=== PATIENT | female | born 1950 | race Caucasian/White ===

== ENCOUNTER → 2017-11-28 | Outpatient (CLI) | payer MEDICARE ==
[~2017-11-28] MED LIST: ASPIRIN CHEWABL81 MG PO; AUGMENTIN 875 M1 TAB PO; AUGMENTIN 875875 MG PO; CIPROFLOXACIN250 MG PO; CIPROFLOXACIN500 MG PO; CLARITIN10 MG PO; DARVOCET N 1001 TAB PO; DAYPRO600 M1 PO; ELIQUIS5 M1 PO; GEODON20 MG PO; HYDROCHLOROTHIA25 M1 PO; IBU-8800 MG PO; INVEGA SUSTENN156 MG IM; INVEGA6 MG PO; K-DUR20 MEQ PO; KEFLEX500 MG PO; LASIX40 MG PO; LISINOPRIL20 MG PO; MACROBID100 M1 PO; MEDROL DOSEPAK4 MG PO; MIRTAZAPINE15 M2 PO; NKHM; POTASSIUM CHLO20 ME4 PO; TRAMADOL HCL50 MG PO; VITAMIN D50000 I3 PO; ZYRTEC10 MG PO
== END | disposition home or self-care (01) ==
LOC: MAMMO 13:27
DX: Z12.31 Encounter for screening mammogram for malignant neoplasm of breast (principal)

== ENCOUNTER 2018-10-05 11:18 | Emergency (ER) | payer MEDICARE ==
--- NOTE | ~2018-10-05 | EKG ---
[employer], [place] ELECTROCARDIOGRAM REPORT NAME: JESSY BENSON UNIT #: [id number] ROOM: DOCTOR: EPIPHANY DRAFT REPORT BIRTHDATE: [birth year] [facility] Test Date: 2018-10-05 Test Time: 11:50:55 Pat Name: JESSY BENSON Department: ER Room: Gender: F Analytics Director: : 1950 Requested By: MARCUS FLETCHER Order Number: [id number] Reading MD: Nikita Porter MD Measurements Intervals [place] Rate: 100 P: 38 NH: 147 QRS: -60 QRSD: 85 T: 41 QT: 353 QTc: 456 Interpretive Statements Sinus tachycardia Anterolateral infarct, old Electronically Signed On 10-06-2018 15:17:50 PST by Nikita Porter MD CM:EKGRPT:ELECTROCARDIOGRAM REPORT [id number] MARCUS DEGROOT DRAFT REPORT MARCUS FLETCHER MD
[2018-10-05 11:49] LABS: BASO # 0.1 10*3/uL (0.0-0.1); BASO % 0.6 % (0.0-1.0); EOS # 0.1 10*3/uL (0.0-0.4); EOS % 0.8 % (1.0-4.0); HEMATOCRIT 41.4 % (37.0-47.0); HEMOGLOBIN 13.8 g/dl (12.0-16.0); LYMPH # 1.5 10*3/uL (1.3-4.4); LYMPH % 16.9 % (27.0-41.0); MEAN CELL VOLUME 98.8 fl (81.0-99.0); MEAN CORPUSCULAR HGB 32.9 pg (27.0-31.0); MEAN CORPUSCULAR HGB CONC 33.3 g/dl (33.0-37.0); MEAN PLATELET VOLUME 11.1 fl (9.6-12.3); MONO # 0.6 10*3/uL (0.1-1.0); MONO % 6.2 % (3.0-9.0); NEUT # 6.7 10*3/uL (2.3-7.9); NEUT % 75.3 % (47.0-73.0); PLATELET COUNT AUTOMATED 297 10*3/uL (130-400); RED BLOOD COUNT 4.19 10*6/uL (4.10-5.10); RED CELL DISTRI WIDTH 13.7 % (0-14.5); WHITE BLOOD COUNT 8.8 10*3/uL (4.8-10.8)
[2018-10-05 11:59] LABS: ACT PARTIAL THROMBO TIME 21.9 SECONDS (20.8-31.5)
[2018-10-05 12:11] LABS: ALKALINE PHOSPHATASE 138 U/L (45-117); BUN 17 mg/dl (7-24); CHLORIDE 106 mmol/L (98-107); CREATININE 1.02 mg/dL (0.55-1.02); POTASSIUM 4.2 mmol/L (3.5-5.1); SGOT/AST 16 IU/L (3-35); SGPT/ALT 24 U/L (12-78); SODIUM 138 mmol/L (136-145)
[2018-10-05 12:16] LABS: TROPONIN I < 0.015 ng/ml (<0.045)
[2018-10-05 15:02] LABS: BILIRUBIN NEGATIVE (NEGATIVE); BLOOD TRACE-INTACT (NEGATIVE); CLARITY CLEAR (CLEAR); COLOR YELLOW (YELLOW); GLUCOSE 2+ (NEGATIVE); KETONE NEGATIVE (NEGATIVE); LEUKO ESTERASE NEGATIVE (NEGATIVE); NITRITE NEGATIVE (NEGATIVE); PH 5.5 (5.0-9.0); SPECIFIC GRAVITY <= 1.005 (1.005-1.030); UROBILINOGEN 0.2 E.U./dl (0.2-1.0)
[2018-10-05 15:09] LABS: BACTERIA TRACE
== END 2018-10-05 15:20 | disposition home or self-care (01) ==
LOC: ED 11:18
PROVIDERS: Emergency Medicine
DX: J18.9 Pneumonia, unspecified organism (principal); I26.99 Other pulmonary embolism without acute cor pulmonale; I11.0 Hypertensive heart disease with heart failure; I50.9 Heart failure, unspecified; M79.89 Other specified soft tissue disorders; R00.0 Tachycardia, unspecified; Z88.2 Allergy status to sulfonamides; Z88.1 Allergy status to other antibiotic agents; Z79.899 Other long term (current) drug therapy; Z79.82 Long term (current) use of aspirin

== ENCOUNTER 2018-10-10 20:24 | Emergency (ER) | payer MEDICARE ==
[2018-10-10 20:54] LABS: BASO # 0.1 10*3/uL (0.0-0.1); BASO % 0.7 % (0.0-1.0); EOS # 0.1 10*3/uL (0.0-0.4); EOS % 0.6 % (1.0-4.0); HEMATOCRIT 40.1 % (37.0-47.0); HEMOGLOBIN 13.2 g/dl (12.0-16.0); LYMPH # 1.9 10*3/uL (1.3-4.4); LYMPH % 17.4 % (27.0-41.0); MEAN CELL VOLUME 99.3 fl (81.0-99.0); MEAN CORPUSCULAR HGB 32.7 pg (27.0-31.0); MEAN CORPUSCULAR HGB CONC 32.9 g/dl (33.0-37.0); MEAN PLATELET VOLUME 10.8 fl (9.6-12.3); MONO # 0.8 10*3/uL (0.1-1.0); MONO % 6.8 % (3.0-9.0); NEUT # 8.3 10*3/uL (2.3-7.9); NEUT % 74.2 % (47.0-73.0); PLATELET COUNT AUTOMATED 297 10*3/uL (130-400); RED BLOOD COUNT 4.04 10*6/uL (4.10-5.10); RED CELL DISTRI WIDTH 13.9 % (0-14.5); WHITE BLOOD COUNT 11.1 10*3/uL (4.8-10.8)
[2018-10-10 21:13] LABS: ALBUMIN 3.1 gm/dl (3.1-4.5); ALKALINE PHOSPHATASE 116 U/L (45-117); BUN 18 mg/dl (7-24); CHLORIDE 107 mmol/L (98-107); CREATININE 1.06 mg/dL (0.55-1.02); POTASSIUM 3.7 mmol/L (3.5-5.1); SGOT/AST 23 IU/L (3-35); SGPT/ALT 28 U/L (12-78); SODIUM 141 mmol/L (136-145); TOTAL PROTEIN 6.8 gm/dL (6.4-8.2)
[2018-10-10 21:18] LABS: ACETAMINOPHEN (TYLENOL) < 5.0 ug/ml (10-30)
[2018-10-10 21:19] LABS: ETHYL ALCOHOL < 3.0 mg/dl (<3)
[2018-10-10 22:01] LABS: BILIRUBIN NEGATIVE (NEGATIVE); BLOOD TRACE-LYSED (NEGATIVE); CLARITY CLEAR (CLEAR); COLOR YELLOW (YELLOW); GLUCOSE NEGATIVE (NEGATIVE); KETONE 1+ (NEGATIVE); LEUKO ESTERASE NEGATIVE (NEGATIVE); NITRITE NEGATIVE (NEGATIVE); SPECIFIC GRAVITY 1.025 (1.005-1.030); UROBILINOGEN 0.2 E.U./dl (0.2-1.0)
[2018-10-10 22:08] LABS: URINE AMPHETAMINES < 1000 (1000ng/ml); URINE BARBITURATES < 200 (200ng/ml); URINE BENZODIAZEPINES < 200 (200ng/ml); URINE CANNABINOIDS (THC) < 50 (50ng/ml); URINE COCAINE < 300 (300ng/ml); URINE METHADONE < 300 (300ng/ml); URINE OPIATES < 300 (300ng/ml)
[2018-10-10 22:10] LABS: URINE PHENCYCLIDINE < 25 (25ng/ml)
[2018-10-11] MEDS ORDERED: ZOLOFT100 MG PO (07:10)
[2018-10-11] MEDS ORDERED: DEPAKOTE DR500 MG PO (07:11)
== END 2018-10-11 15:48 | disposition short-term general hospital (02) ==
LOC: ED 20:24
PROVIDERS: Nurse Practitioner Family
DX: F23 Brief psychotic disorder (principal); Z88.2 Allergy status to sulfonamides; Z88.1 Allergy status to other antibiotic agents; Z79.899 Other long term (current) drug therapy; Z79.82 Long term (current) use of aspirin; I10 Essential (primary) hypertension; F25.9 Schizoaffective disorder, unspecified; Z90.49 Acquired absence of other specified parts of digestive tract; F31.9 Bipolar disorder, unspecified

== ENCOUNTER 2020-01-03 10:55 | Inpatient (IN) | payer MEDICARE ==
[2020-01-03] VITALS (8 sets, daily range): BP systolic 117–144; BP diastolic 44–80
[~2020-01-03] VITALS: Ht 167.6 cm; Wt 107.6 kg
[~2020-01-03 10:55] MED LIST changes: +DEPAKOTE DR500 MG PO; +ZOLOFT100 MG PO
[2020-01-03 12:03] LABS: BASO # 0.1 10*3/uL (0.0-0.1); BASO % 0.6 % (0.0-1.0); EOS # 0.1 10*3/uL (0.0-0.4); EOS % 0.9 % (1.0-4.0); HEMATOCRIT 43.1 % (37.0-47.0); LYMPH # 1.5 10*3/uL (1.3-4.4); LYMPH % 14.4 % (27.0-41.0); MEAN CELL VOLUME 95.4 fl (81.0-99.0); MEAN CORPUSCULAR HGB 31.2 pg (27.0-31.0); MEAN CORPUSCULAR HGB CONC 32.7 g/dl (33.0-37.0); MEAN PLATELET VOLUME 11.7 fl (9.6-12.3); MONO # 0.7 10*3/uL (0.1-1.0); MONO % 6.9 % (3.0-9.0); NEUT # 7.8 10*3/uL (2.3-7.9); NEUT % 76.9 % (47.0-73.0); PLATELET COUNT AUTOMATED 284 10*3/uL (130-400); RED BLOOD COUNT 4.52 10*6/uL (4.10-5.10); RED CELL DISTRI WIDTH 13.3 % (0-14.5); WHITE BLOOD COUNT 10.2 10*3/uL (4.8-10.8)
[2020-01-03 12:04] LABS: BILIRUBIN NEGATIVE (NEGATIVE); BLOOD TRACE-LYSED (NEGATIVE); CLARITY CLEAR (CLEAR); COLOR YELLOW (YELLOW); GLUCOSE 3+ (NEGATIVE); KETONE NEGATIVE (NEGATIVE); LEUKO ESTERASE NEGATIVE (NEGATIVE); NITRITE NEGATIVE (NEGATIVE); UROBILINOGEN 0.2 E.U./dl (0.2-1.0)
--- NOTE | 2020-01-03 12:05 | NUR ---
PT POSITIONED FOR COMFORT WITH [employer] INTACT AND CALL LIGHT WITHIN REACH,NO COMPLAINTS VOICED WILL CONTINUE TO MONITOR.
[2020-01-03 12:10] LABS: BACTERIA 1+; YEAST 1+
[2020-01-03 12:20] LABS: ALBUMIN 2.9 gm/dl (3.1-4.5); ALKALINE PHOSPHATASE 108 U/L (45-117); BUN 34 mg/dl (7-24); CHLORIDE 93 mmol/L (98-107); CREATININE 1.52 mg/dL (0.55-1.02); POTASSIUM 4.4 mmol/L (3.5-5.1); SGOT/AST 17 IU/L (3-35); SGPT/ALT 28 U/L (12-78); SODIUM 125 mmol/L (136-145); TOTAL PROTEIN 6.9 gm/dL (6.4-8.2)
[2020-01-03 12:22] LABS: TROPONIN I < 0.015 ng/ml (<0.045)
--- NOTE | 2020-01-03 12:24 | NUR ---
ARRON RAMIREZ NOTIFIED OF CRITICAL BLOOD GLUCOSE OF 836
--- NOTE | 2020-01-03 14:02 | NUR ---
MENDOZA (AIDE) AT [facility] NOTIFIED OF PATIENT ADMISSION. STATES SHE IS THE ONLY STAFF ON DUTY AT FACILITY AT THIS TIME.
--- NOTE | 2020-01-03 14:12 | NUR ---
MSADMTime: N A 69 year old FEMALE admitted to 4E under services of DR. CORBY PIERCE,PASCALE Julien Pt. arrived via wheel chair from ER. Chief complaint: DRY MOUTH. MAURICIO LIZARRAGA
--- NOTE | 2020-01-03 16:15 | NUR ---
NOTIFIED DR. TAVAREZ OF PT'S GLUCOSE.
--- NOTE | 2020-01-03 19:32 | NUR ---
IN PT ROOM AT THIS TIME TO COMPLETE ASSESSMENT, PT STATES SHE HAS NO COMPLAINTS AT THIS TIME. HER NASAL CANNULA WAS NOT ON, SO I DID PUT HER ON 2L. PT IS AWARE OF HOW TO USE CALL LIGHT IF SHE NEEDS ANYTHING, CALL LIGHT WITHIN REACH, WILL CONTINUE TO MONITOR
--- NOTE | 2020-01-03 21:24 | NUR ---
CANCELLED VITAL SINGS ACCIDENTALLY, SO I COPIED ALL OF THE VITALS THAT HAVE BEEN TAKEN AND ADDED A NEW INTERVENTION AND UPDATED THE VITALS
[2020-01-04] VITALS: BP 114/89
--- NOTE | 2020-01-04 02:38 | NUR ---
24 HR chart check completed.
[2020-01-04 06:12] LABS: BASO # 0.1 10*3/uL (0.0-0.1); BASO % 0.7 % (0.0-1.0); EOS # 0.2 10*3/uL (0.0-0.4); EOS % 2.4 % (1.0-4.0); HEMATOCRIT 38.8 % (37.0-47.0); LYMPH # 2.4 10*3/uL (1.3-4.4); LYMPH % 24.4 % (27.0-41.0); MEAN CELL VOLUME 95.3 fl (81.0-99.0); MEAN CORPUSCULAR HGB 31.7 pg (27.0-31.0); MEAN CORPUSCULAR HGB CONC 33.2 g/dl (33.0-37.0); MEAN PLATELET VOLUME 11.5 fl (9.6-12.3); MONO # 0.6 10*3/uL (0.1-1.0); MONO % 6.7 % (3.0-9.0); NEUT # 6.3 10*3/uL (2.3-7.9); NEUT % 65.5 % (47.0-73.0); PLATELET COUNT AUTOMATED 265 10*3/uL (130-400); RED BLOOD COUNT 4.07 10*6/uL (4.10-5.10); RED CELL DISTRI WIDTH 13.1 % (0-14.5); WHITE BLOOD COUNT 9.6 10*3/uL (4.8-10.8)
[2020-01-04 06:48] LABS: CREATININE 0.93 mg/dL (0.55-1.02)
[2020-01-04 07:09] LABS: CHLORIDE 102 mmol/L (98-107)
[2020-01-04 07:11] LABS: BUN 22 mg/dl (7-24); POTASSIUM 3.3 mmol/L (3.5-5.1); SODIUM 139 mmol/L (136-145)
[2020-01-04 08:00] VITALS: BP 118/47
[2020-01-04 12:00] VITALS: BP 132/54
[2020-01-04 16:00] VITALS: BP 117/52
--- NOTE | 2020-01-04 19:45 | NUR ---
IN PT ROOM AT THIS TIME TO COMPLETE ASSESSMENT AND PT STATES THAT SHE IS FEELING MUCH BETTER. PT DOES APPEAR TO BE CONFUSED AT THIS TIME. I SHOWED HER WHERE THE CALL LIGHT WAS AND TOLD HER HOW TO USE IT, WILL CONTINUE TO MONITOR.
[2020-01-04 20:00] VITALS: BP 109/42
[2020-01-05] VITALS: BP 116/68
--- NOTE | 2020-01-05 04:10 | NUR ---
24 HR chart check completed.
[2020-01-05 06:23] LABS: BASO # 0.1 10*3/uL (0.0-0.1); BASO % 0.8 % (0.0-1.0); EOS # 0.2 10*3/uL (0.0-0.4); EOS % 2.8 % (1.0-4.0); HEMATOCRIT 39.8 % (37.0-47.0); LYMPH # 2.4 10*3/uL (1.3-4.4); LYMPH % 28.8 % (27.0-41.0); MEAN CELL VOLUME 95.9 fl (81.0-99.0); MEAN CORPUSCULAR HGB 31.3 pg (27.0-31.0); MEAN CORPUSCULAR HGB CONC 32.7 g/dl (33.0-37.0); MEAN PLATELET VOLUME 11.8 fl (9.6-12.3); MONO # 0.6 10*3/uL (0.1-1.0); MONO % 7.6 % (3.0-9.0); NEUT % 59.5 % (47.0-73.0); PLATELET COUNT AUTOMATED 275 10*3/uL (130-400); RED BLOOD COUNT 4.15 10*6/uL (4.10-5.10); RED CELL DISTRI WIDTH 13.3 % (0-14.5); WHITE BLOOD COUNT 8.5 10*3/uL (4.8-10.8)
[2020-01-05 06:28] LABS: BUN 17 mg/dl (7-24); CHLORIDE 104 mmol/L (98-107); CREATININE 0.81 mg/dL (0.55-1.02); POTASSIUM 3.6 mmol/L (3.5-5.1); SODIUM 138 mmol/L (136-145)
[2020-01-05 08:00] VITALS: BP 109/66
[2020-01-05 12:00] VITALS: BP 107/42
--- NOTE | 2020-01-05 12:20 | NUR ---
PT RESIDES AT [facility] AND STATES SHE WANTS TO RETURN THERE ON DISCHARGE. STATES SHE USES A WALKER AT HOME. STATES SHE SHOULD HAVE A RIDE HOME ON DISCHARGE. WILL CONTINUE TO FOLLOW.
--- NOTE | 2020-01-05 12:23 | NUR ---
Nutritional Support Services Note: Pt with new onset DM. Comes from an assisted living facility. Currently receives a NCS diet as ordered. No questions at this time. Will continue to follow. Natalie Martin Rdn Ld
--- NOTE | 2020-01-05 12:35 | NUR ---
PHYSICAL THERAPY Physical Therapy evaluation completed on 4E with full evaluation to follow. Low complexity PT evaluation per chart review and evaluation, [id number]. Recommend physical therapy per plan of care and return to [facility] upon discharge. Thank you for this referral. Bindu Hough,PT,DPT
[2020-01-05 16:00] VITALS: BP 111/47
[2020-01-05 20:00] VITALS: BP 135/55
[2020-01-06] VITALS: BP 138/46
--- NOTE | 2020-01-06 05:29 | NUR ---
PRN TYLENOL GIVEN FOR PT COMPLAINTS OF A SLIGHT HEADACHE. CALL LIGHT WITHIN REACH, WILL MONITOR
--- NOTE | 2020-01-06 06:15 | NUR ---
PRN MEDICATION APPEARS EFFECTIVE, PT SLEEPING
[2020-01-06 06:20] LABS: BASO # 0.1 10*3/uL (0.0-0.1); EOS # 0.3 10*3/uL (0.0-0.4); EOS % 3.9 % (1.0-4.0); HEMATOCRIT 39.6 % (37.0-47.0); LYMPH # 2.2 10*3/uL (1.3-4.4); LYMPH % 27.7 % (27.0-41.0); MEAN CELL VOLUME 98.5 fl (81.0-99.0); MEAN CORPUSCULAR HGB 31.6 pg (27.0-31.0); MEAN CORPUSCULAR HGB CONC 32.1 g/dl (33.0-37.0); MONO # 0.8 10*3/uL (0.1-1.0); MONO % 9.9 % (3.0-9.0); NEUT # 4.5 10*3/uL (2.3-7.9); NEUT % 56.9 % (47.0-73.0); PLATELET COUNT AUTOMATED 252 10*3/uL (130-400); RED BLOOD COUNT 4.02 10*6/uL (4.10-5.10); RED CELL DISTRI WIDTH 13.2 % (0-14.5); WHITE BLOOD COUNT 7.9 10*3/uL (4.8-10.8)
[2020-01-06 06:38] LABS: BUN 15 mg/dl (7-24); CHLORIDE 104 mmol/L (98-107); CREATININE 0.76 mg/dL (0.55-1.02); POTASSIUM 3.7 mmol/L (3.5-5.1); SODIUM 140 mmol/L (136-145)
[2020-01-06 08:00] VITALS: BP 124/88
--- NOTE | 2020-01-06 08:15 | NUR ---
PHYSICAL THERAPY Patient seen this am 1:1 for therapy visit and was resting supine in bed upon therapist arrival. Patient identified by name / and presented with continuous IV treatment, O2-1L via NC. Patient reported no c/o's pain as vital signs remained WFL's throughout entire treatment session. Patient transfers supine to sit EOB, then sit stand, CGA x 1, ambulating with use of wh walker, 45'x 2, demonstrating very slow, cautious gait pattern. Patient able to take 5-6 backward steps without LOB and returned to supine in bed with mild fatigue. Patient remained in bed with call light, tray table and telephone, Will continue per POC as tolerated, total treatment time 17 minutes. Mati Wei, AUTOMOTIVE PAINT TECHNICIAN
[2020-01-06] MEDS ORDERED: GLUCOPHAGE500 MG PO (09:45)
[2020-01-06] MEDS ORDERED: GLIMEPIRIDE4 M1 PO (09:47)
--- NOTE | 2020-01-06 09:50 | NUR ---
MACHINE TOOL BUILDER FAXED UPDATES TO [facility].
[2020-01-06 12:00] VITALS: BP 127/82
--- NOTE | 2020-01-06 12:26 | NUR ---
EDITORIAL WRITER SPOKE HECTOR VELASQUEZ. EDITORIAL WRITER SPOKE WITH [facility], THEY ARE ABLE TO TRANSPORT THE PATIENT BACK TO THEIR FACILITY TODAY AT 2PM. EDITORIAL WRITER EXPLAINED TO MOR TO HAVE THE RIDE MEET AT THE ER DOORS. EDITORIAL WRITER CONTACTED PATIENT SISTER VIOLETA AND EXPLAINED DISCHARGE. EDITORIAL WRITER TO FAX DISCHARGE ORDER TO [facility].
--- NOTE | 2020-01-06 14:40 | NUR ---
Discharge instructions reviewed with patient/family. Patient receptive and verbalizes understanding. Follow-up care arranged. Written instructions given to patient/family. [place]OCK DISCONTINUED. PATIENT DISCHARGED VIA PRIVATE VEHICLE FROM [facility]. EVA OROZCO
--- NOTE | 2020-01-07 08:14 | NUR ---
PHYSICAL THERAPY CO-SIGN I approve of the Physical Therapy notes written above. Milagros Fuentes PT
== END 2020-01-06 14:40 | disposition home or self-care (01) | DRG 70 ==
LOC: ED 10:55 → EDHOLD 13:16 → 4E 13:16
PROVIDERS: Nurse Practitioner Family; ADMIT Internal Medicine
DX: G93.41 Metabolic encephalopathy (principal); E11.00 Type 2 diabetes mellitus with hyperosmolarity without nonketotic hyperglycemic-hyperosmolar coma (NKHHC); N17.0 Acute kidney failure with tubular necrosis; F33.0 Major depressive disorder, recurrent, mild; E87.0 Hyperosmolality and hypernatremia; E11.65 Type 2 diabetes mellitus with hyperglycemia; E86.0 Dehydration; E87.6 Hypokalemia; E66.01 Morbid (severe) obesity due to excess calories; J45.40 Moderate persistent asthma, uncomplicated; I11.0 Hypertensive heart disease with heart failure; I50.9 Heart failure, unspecified; Z68.35 Body mass index [BMI] 35.0-35.9, adult; Z86.718 Personal history of other venous thrombosis and embolism; Z79.01 Long term (current) use of anticoagulants; Z88.1 Allergy status to other antibiotic agents; Z88.2 Allergy status to sulfonamides

== ENCOUNTER 2020-02-07 22:20 | Emergency (ER) | payer MEDICARE ==
[~2020-02-07] VITALS: Ht 167.6 cm; Wt 104.3 kg
[~2020-02-07 22:20] MED LIST changes: +GLIMEPIRIDE4 M1 PO; +GLUCOPHAGE500 MG PO
== END 2020-02-08 00:46 | disposition home or self-care (01) ==
LOC: ED 22:20
DX: S09.90XA Unspecified injury of head, initial encounter (principal); Z88.8 Allergy status to other drugs, medicaments and biological substances; Z88.2 Allergy status to sulfonamides; Z79.899 Other long term (current) drug therapy; Z79.82 Long term (current) use of aspirin; W19.XXXA Unspecified fall, initial encounter; Y93.89 Activity, other specified; Y92.89 Other specified places as the place of occurrence of the external cause; Y99.8 Other external cause status

== ENCOUNTER 2020-02-24 19:59 | Emergency (ER) | payer MEDICARE ==
[~2020-02-24] VITALS: Ht 167.6 cm; Wt 104.3 kg
== END 2020-02-24 23:32 | disposition home or self-care (01) ==
LOC: ED 19:59
DX: S01.01XA Laceration without foreign body of scalp, initial encounter (principal); S09.90XA Unspecified injury of head, initial encounter; I10 Essential (primary) hypertension; Z88.2 Allergy status to sulfonamides; Z88.8 Allergy status to other drugs, medicaments and biological substances; Z79.899 Other long term (current) drug therapy; W19.XXXA Unspecified fall, initial encounter; Y93.89 Activity, other specified; Y92.89 Other specified places as the place of occurrence of the external cause; Y99.8 Other external cause status

== ENCOUNTER → 2020-07-07 | Day surgery (SDC) | payer MEDICARE ==
[~2020-07-07] VITALS: Wt 103.0 kg
[~2020-07-07] MED LIST changes: +ACETAMINOPHEN325 M2 PO; +BENZTROPINE MESY1 MG PO; +GLUCOPHAGE500 M1 PO; +NYSTOP60 GM T; +RISPERDAL2 M1 PO
[2020-07-07 08:40] VITALS: BP 95/57
[2020-07-07 09:28] VITALS: BP 100/60
[2020-07-07 09:45] VITALS: BP 100/67
[2020-07-07 09:59] VITALS: BP 112/61
== END ==
LOC: SDC 06-03 08:00
PROVIDERS: ATTEND Ophthalmology
DX: H25.811 Combined forms of age-related cataract, right eye (principal); I11.0 Hypertensive heart disease with heart failure; I50.9 Heart failure, unspecified; E11.9 Type 2 diabetes mellitus without complications; J45.909 Unspecified asthma, uncomplicated; F31.9 Bipolar disorder, unspecified; I26.99 Other pulmonary embolism without acute cor pulmonale; Z79.82 Long term (current) use of aspirin; Z79.01 Long term (current) use of anticoagulants; Z79.899 Other long term (current) drug therapy

== ENCOUNTER → 2022-07-17 | Outpatient (CLI) | payer MEDICARE ==
[~2022-07-17] MED LIST changes: +ATORVASTATIN CA40 M1 PO; +CEFUROXIME AXE250 MG PO; +DICLOFENAC SODI25 MG PO; +LISINOPRIL5 MG PO; +METFORMIN HYDR500 MG PO; +NATURE'S BLEND F1 MG PO; +SERTRALINE HYD100 MG PO; +TRULICITY1.5 MG/0.5 SC
== END | disposition home or self-care (01) ==
LOC: MAMMO 10:22
PROVIDERS: ATTEND Internal Medicine
DX: Z12.31 Encounter for screening mammogram for malignant neoplasm of breast (principal); N64.9 Disorder of breast, unspecified

== ENCOUNTER → 2024-06-23 | Outpatient (CLI) | payer MEDICARE, OTHER ==
[~2024-06-23] MED LIST changes: +BUMETANIDE1 MG PO; +IBU600 M1 PO; +MOUNJARO7.5 MG/0.1 SQ; +NYAMYC15 GM T; +OMEPRAZOLE MAGN20 MG PO; +PHARMASSURE FO0.8 MG PO; +RISPERIDONE0.5 MG PO; +VITAMIN D350 MC2 PO
== END | disposition home or self-care (01) ==
LOC: MAMMO 08:45
PROVIDERS: ATTEND Internal Medicine
DX: Z12.31 Encounter for screening mammogram for malignant neoplasm of breast (principal)

== ENCOUNTER → 2025-04-20 | Outpatient (CLI) | payer OTHER | END | disposition home or self-care (01) | LOC: WOUNDCARE 01:29 | PROVIDERS: ATTEND Nurse Practitioner Family | DX: S31.829A Unspecified open wound of left buttock, initial encounter (principal); L24.A0 Irritant contact dermatitis due to friction or contact with body fluids, unspecified; E11.9 Type 2 diabetes mellitus without complications; I50.9 Heart failure, unspecified; K21.9 Gastro-esophageal reflux disease without esophagitis; E66.01 Morbid (severe) obesity due to excess calories; F32.9 Major depressive disorder, single episode, unspecified; Z68.37 Body mass index [BMI] 37.0-37.9, adult; X58.XXXA Exposure to other specified factors, initial encounter; Y93.89 Activity, other specified; Y92.89 Other specified places as the place of occurrence of the external cause; Y99.8 Other external cause status ==

== ENCOUNTER → 2025-07-21 | Outpatient (CLI) | payer OTHER | END | disposition home or self-care (01) | LOC: MAMMO 16:00 | PROVIDERS: ATTEND Internal Medicine | DX: Z12.31 Encounter for screening mammogram for malignant neoplasm of breast (principal) ==